=== PATIENT | female | born 1995 | race Caucasian/White ===

== ENCOUNTER → 2019-06-07 | Outpatient (REF) | payer BC | LOC: M SFHCWAGY 13:01 | PROVIDERS: ATTEND Nurse Practitioner Women's Health | DX: Z12.4 Encounter for screening for malignant neoplasm of cervix (principal) ==

== ENCOUNTER → 2020-06-07 | Outpatient (REF) | payer BC | LOC: M LAB REF 17:17 | PROVIDERS: ATTEND Physician Assistant | DX: D48.5 Neoplasm of uncertain behavior of skin (principal) ==